=== PATIENT | male | born 1990 | race Caucasian/White ===

== ENCOUNTER 2020-04-09 16:14 | Emergency (ER) | payer OTHER, SELFPAY ==
[2020-04-09 16:24] VITALS: BP 148/84; PULSE 88; RESP 16; TEMP 36.9; O2SAT 98
--- NOTE | 2020-04-09 16:29 | ED.SKABFB ---
HPI - Skin/Abscess/Foreign Bdy General Chief complaint: Skin/Abscess/Foreign Body Stated complaint: rash Time Seen by Provider: 04/09/20 16:29 Source: patient and RN notes reviewed History of Present Illness HPI narrative: Patient is a 30-year-old male who presents the urgent care with complaints of itchy burning rash to bilateral upper arms, on the right side of the face and on the left lower back. Patient states that yesterday he was in a crawl space replacing old britt for approximately 5 to 6 hours. Patient states that he was not wearing any protective eyewear and was wearing shorts and a T-shirt. Patient states that there are no areas on his legs but his brother also has areas on his upper body. Denies of any shortness of breath, nausea, vomiting, fever. No other acute complaints. No acute distress noted. Patient read the plan of care. Related Data Allergies Allergy/AdvReac Type Severity Reaction Status Date / Time Seafood Allergy Mild facial Uncoded 07/30/19 09:53 swelling seafood Allergy Unknown Rash Uncoded 07/30/19 09:53 Review of Systems Review of Systems: Narrative: CONSTITUTIONAL: Denies fever, chills, or sweats. EYES: Denies visual changes, redness, or discharge. ENT: Denies rhinorrhea, congestion, sore throat, or otalgia. CARDIOVASCULAR: Denies chest pain, palpitations, or edema. RESPIRATORY: Denies cough or dyspnea. GASTROINTESTINAL: Denies abdominal pain, nausea, vomiting, or diarrhea. GENITOURINARY: Denies dysuria or hematuria. SKIN: Reports of burning itchy red rash to bilateral arms, lower left back, and right side of the face MUSCULOSKELETAL: Denies back pain, joint pain, or myalgia. NEUROLOGIC: Denies headache, numbness, or weakness. All other systems reviewed are negative, except as documented in HPI. [facility] Social History Social History (Updated 07/30/19 @ 10:04 by JUSTIN Chan) Smoking status: Never smoker Alcohol intake: never Substance use: never Gender identity (if verbalized by the patient): Male Comments At the time of my signature, I reviewed and agree with the nursing past medical, surgical, social, and family history. There is no relevant family history pertinent to the patient complaint. Exam Narrative: Exam Narrative: GENERAL: This is a well-nourished, well-developed patient, in no apparent distress. HEAD: normocephalic, atraumatic. EYES: PERRL. Sclera clear/white. Vision is grossly intact. EARS: External ears normal NOSE: External nose normal with no obvious nasal discharge, nares without redness, no rhinorrhea. THROAT: Mucous membranes moist, posterior pharynx clear. NECK: Neck supple RESPIRATORY: Clear to auscultation. Breath sounds equal bilaterally. No wheezes, rales, or rhonchi. SKIN: Erythemic excoriated first-degree ba bilateral arms, left lower back and right side of the face NEURO: awake, alert, and oriented to person, place and time. There were no obvious focal neurologic abnormalities. EXTREMITIES: No clubbing, cyanosis, or edema. Course Vital Signs Vital signs: Vital Signs Temperature 98.5 F 04/09/20 16:24 Pulse Rate 88 04/09/20 16:24 Respiratory Rate 16 04/09/20 16:24 Blood Pressure 148/84 H 04/09/20 16:24 Pulse Oximetry 98 04/09/20 16:24 Temperature 98.5 F 04/09/20 16:24 Pulse Rate 88 04/09/20 16:24 Respiratory Rate 16 04/09/20 16:24 Blood Pressure 148/84 H 04/09/20 16:24 Pulse Oximetry 98 04/09/20 16:24 Reviewed?patient is informed that they may have pre-hypertension or hypertension based on a blood pressure reading in the department. I recommend the patient call the primary care provider listed on their discharge instructions or a physician of their choice this week to arrange follow-up for further evaluation of possible pre-hypertension or hypertension. MDM - Skin/Abscess/Foreign Bdy MDM Narrative Medical decision making narrative: Advised patient to use prescription cream on the affected areas, twice a
== END 2020-04-09 17:02 | disposition home or self-care (01) ==
PROVIDERS: Emergency Provider Nurse Practitioner Family
DX: T22.10XA Burn of first degree of shoulder and upper limb, except wrist and hand, unspecified site, initial encounter (principal); T21.14XA Burn of first degree of lower back, initial encounter; T20.10XA Burn of first degree of head, face, and neck, unspecified site, initial encounter; T31.0 Burns involving less than 10% of body surface; R03.0 Elevated blood-pressure reading, without diagnosis of hypertension
CPT/HCPCS: 99213; G0463

== ENCOUNTER 2021-09-12 17:30 | Emergency (ER) | payer OTHER, SELFPAY ==
[2021-09-12 17:42] VITALS: BP 144/87; PULSE 82; RESP 16; TEMP 36.7; O2SAT 99
--- NOTE | 2021-09-12 18:15 | ED.EAR ---
HPI - Ear Problem General Chief complaint: Ear Stated complaint: Neck and Ear Pain Time Seen by Provider: 09/12/21 18:15 Source: patient, RN notes reviewed and old records reviewed Mode of arrival: ambulatory Limitations: no limitations History of Present Illness HPI Narrative: 31-year-old male presents to the [facility] with complaints of ear and neck pain on the right side for 2 days. Has poor dentition. Has been using Q-tips and pins to help remove earwax. MD Complaint: ear pain Location: right ear Duration: constant Severity: mild Relieving factors: nothing Related Data Allergies Allergy/AdvReac Type Severity Reaction Status Date / Time Seafood Allergy Mild facial Uncoded 07/30/19 09:53 swelling seafood Allergy Unknown Rash Uncoded 07/30/19 09:53 Review of Systems Review of Systems: All systems reviewed & are unremarkable except as noted in HPI and below Constitutional: Constitutional: Reports no additional constitutional complaints, Denies chills and Denies fever(s) Eyes: Eyes: Reports no additional eye complaints ENT: Reports as per HPI Comments: Right ear pain. Cardiovascular: Cardiovascular: Reports no additional cardiovascular complaints, Denies chest pain and Denies radiating jaw, neck or arm pain Respiratory: Respiratory: Reports no additional respiratory complaints, Denies cough, Denies dyspnea and Denies wheezing Gastrointestinal: Gastrointestinal: Reports no additional gastrointestinal complaints, Denies abdominal pain, Denies diarrhea, Denies nausea and Denies vomiting Musculoskeletal: Musculoskeletal: Reports no additional musculoskeletal complaints Integumentary/Breasts: Skin/Breast: Reports system reviewed and no additional complaints, except as docu Neurologic: Reports system reviewed and no additional complaints, except as documented Psychiatric: Psychiatric: Reports no additional psychiatric complaints Allergic/Immunologic: Allergic/Immunologic: Reports no additional allergic/immunologic complaints [facility] Past Medical History Medical History (Updated 09/14/21 @ 11:14 by Kylah Rangel) Patient denies medical problems Surgical History Surgical History (Updated 09/12/21 @ 18:21 by Kylah Rangel) H/O right wrist surgery Social History Social History Smoking status: Never smoker Alcohol intake: never Substance use: never Gender identity (if verbalized by the patient): Male Comments At the time of my signature, I reviewed and agree with the nursing past medical, surgical, social, and family history. There is no relevant family history pertinent to the patient complaint. Exam Const: General: healthy appearing, no acute distress and alert Nutritional Appearance: well nourished Orientation/consciousness: patient oriented x3 Limitations: no limitations HENMT: Head: normal to inspection Ears: external ears normal, Abnormal EAC present (Unable to visualize TM) excessive cerumen on the right, erythema on the right and edema on the right and unable to visualize TM on the right General nose exam: Normal external nose present and Normal nasal mucous membranes and turbinates present Face and sinus: sinuses nontender Teeth and gingiva: gingiva abnormal edematous and tender Teeth image: 1. Decayed, swelling around the gingiva Throat: posterior oropharynx normal, uvula midline and no uvular edema Eyes: Conjunctivae: conjunctivae normal Pupils: Equal, round and reactive pupils present Direct Ophthalmoscopy: no photophobia Neck: Neck: normal visual inspection, no lymphadenopathy and no meningeal signs Chest: Chest palpation & inspection: normal inspection of the chest Resp: Effort & Inspection: normal respiratory effort and no use of accessory muscles Auscultation: clear to auscultation bilaterally, no crackles, no rales, no rhonchi and no wheezes Cardio: Rate: regular rate Rhythm: regular rhythm Back/Spine/Pelvis:
== END 2021-09-12 18:38 | disposition home or self-care (01) ==
PROVIDERS: Emergency Provider Nurse Practitioner
DX: H60.91 Unspecified otitis externa, right ear (principal); H61.21 Impacted cerumen, right ear; K04.7 Periapical abscess without sinus
CPT/HCPCS: 99213; G0463

== ENCOUNTER 2022-02-13 16:46 | Emergency (ER) | payer OTHER, SELFPAY ==
--- NOTE | ~2022-02-13 | XR_ITS ---
XR ankle LT min 3V DATE: 02/13/2022 17:07 INDICATION: Injury today. Lateral swelling, posterior pain TECHNIQUE: 4 views COMPARISON: None FINDINGS: There is lateral moderate soft tissue swelling. No fracture or dislocation of the ankle or disruption of the ankle mortise is detected. No periosteal reaction or bone destruction. IMPRESSION: Lateral soft tissue swelling; no fracture or dislocation is detected Reviewed, dictated and finalized at location A. IMPRESSION: Lateral soft tissue swelling; no fracture or dislocation is detecte d
[2022-02-13 16:54] VITALS: BP 153/91; PULSE 101; RESP 18; TEMP 36.5; O2SAT 100
--- NOTE | 2022-02-13 17:34 | ED.LOWEXIN ---
HPI - Extremity Injury (Lower) General Chief Complaint: Extremity Injury, Lower Stated Complaint: left ankle injury Time Seen by Provider: 02/13/22 16:58 Source: RN notes reviewed History of Present Illness HPI Narrative: Patient presents emergency room from home for left ankle pain. Patient states approximately 11 AM this morning he missed a step and rolled his left ankle since that time has had pain and swelling over his left lateral ankle he denies any other trauma or injury states he is not taking medication for the pain states he has been walking on the ankle. Denies any numbness or tingling Related Data Allergies Allergy/AdvReac Type Severity Reaction Status Date / Time Seafood Allergy Mild facial Uncoded 07/30/19 09:53 swelling seafood Allergy Unknown Rash Uncoded 07/30/19 09:53 Review of Systems Review of Systems: Gen.: Denies fevers or chills Musculoskeletal: See HPI Neuro: Denies numbness, tingling, weakness Skin: Denies rash Endo: Denies DM PMFSH Past Medical History Medical History Patient denies medical problems Surgical History Surgical History (Updated 09/12/21 @ 18:21 by Kylah Rangel APRN) H/O right wrist surgery Social History Social History Smoking status: Never smoker Alcohol intake: never Substance use: never Gender identity (if verbalized by the patient): Male Exam Narrative: APPEARANCE: No acute distress, nontoxic, resting in bed Eyes: EOMI HEENT: Normocephalic, atraumatic, RESPIRATORY: No respiratory distress MUSCULOSKELETAl: Tender palpation of the left lateral ankle with swelling present no tenderness over the anterior medial ankle, no tenderness of the base of the fifth metatarsal or the proximal fibula, dorsalis pedis pulse 2+ neurovascular intact NEURO: Awake and alert. Following commands, speech normal, no focal deficits SKIN:: Warm, dry. Normal Color no rash or lesions Course Course Emergency Course: Discussed with patient results of workup and diagnosis. Discussed need for follow-up with primary care, proper use of medication, and reasons to return to the emergency department. Patient understands and agrees to current treatment plan Vital Signs Vital signs: Vital Signs Temperature 97.7 F 02/13/22 16:54 Pulse Rate 101 H 02/13/22 16:54 Respiratory Rate 18 02/13/22 16:54 Blood Pressure 153/91 H 02/13/22 16:54 Pulse Oximetry 100 02/13/22 16:54 Oxygen Delivery Room Air 02/13/22 16:54 Temperature 97.7 F 02/13/22 16:54 Pulse Rate 101 H 02/13/22 16:54 Respiratory Rate 18 02/13/22 16:54 Blood Pressure 153/91 H 02/13/22 16:54 Pulse Oximetry 100 02/13/22 16:54 Oxygen Delivery Room Air 02/13/22 16:54 MDM - Extremity Injury (Lower) Imaging Data Radiologist's impression: ITS Impressions Ankle X-Ray 02/13/22 17:17 IMPRESSION: Lateral soft tissue swelling; no fracture or dislocation is detected Discharge Plan Discharge Clinical Impression: Left ankle sprain Patient Disposition: Home, Self-Care Condition: Stable Instructions: Antibiotic Form, Ankle Sprain (ED) Additional Instructions: Return for creasing pain numbness or tingling in extremities or any other symptoms of concern Prescriptions: New ibuprofen [IBU] 600 mg tablet 600 mg PO Q6H PRN (Reason: pain) Qty: 20 0RF No Action silver sulfadiazine [Silvadene] 1 % cream 1 applic TOPICAL BID Qty: 50 0RF Rx Instructions: apply a 1.5 mm thickness cephalexin [Keflex] 500 mg capsule 500 mg PO Q12H Qty: 20 0RF amoxicillin 875 mg tablet 875 mg PO Q12H Qty: 20 0RF ciprofloxacin HCl 0.3 % drops See Rx Instructions .ROUTE .COMPLEX Qty: 10 0RF Rx Instructions: Place 4 drops in right ear 3 times a day for 5 days Follow-up/Referrals: PHYSICIAN NOT ON STAFF,NONSTAFF [Primary Care Provide
[2022-02-13] MEDS: IBUPROFEN 600 MG TABLET PO (17:46)
== END 2022-02-13 17:50 | disposition home or self-care (01) ==
PROVIDERS: Emergency Provider Emergency Medicine
DX: S93.402A Sprain of unspecified ligament of left ankle, initial encounter (principal); X50.0XXA Overexertion from strenuous movement or load, initial encounter
CPT/HCPCS: 73610; 99283; A9270

== ENCOUNTER 2022-07-27 14:46 | Emergency (ER) | payer OTHER, SELFPAY ==
--- NOTE | 2022-07-27 14:48 | ED.WOUNDLAC ---
HPI - Wound/Laceration General Chief Complaint: Wound/Laceration Stated Complaint: Right Hand Finger Laceration Time Seen by Provider: 07/27/22 14:48 Source: patient Mode of arrival: ambulatory Limitations: no limitations History of Present Illness HPI narrative: Mr. Collier is a 32-year-old male patient presenting to clinic today with complaints of a right index finger laceration. He reports he was taking down a metal shed and cut the top of his index finger. Tetanus status is unknown . Bleeding is controlled Related Data Home Medications Medication Instructions Recorded Confirmed lisinopril 10 tablet 07/27/22 07/27/22 mg-hydrochlorothiazide 12.5 mg tablet Allergies Allergy/AdvReac Type Severity Reaction Status Date / Time Seafood Allergy Mild facial Uncoded 07/27/22 14:59 swelling seafood Allergy Unknown Rash Uncoded 07/27/22 14:59 Review of Systems Review of Systems: Pertinent positives per HPI. Patient denies any fever, chills, rash, headache, visual changes, dizziness, cough, runny nose, sore throat, shortness of breath, chest pain, palpitations, nausea, vomiting, diarrhea, constipation, abdominal pain, or any urinary issues. [facility] Past Medical History Medical History Patient denies medical problems Surgical History Surgical History H/O right wrist surgery Social History Social History Smoking status: Never smoker Alcohol intake: never Substance use: never Gender identity (if verbalized by the patient): Male Comments At the time of my signature, I reviewed and agree with the nursing past medical, surgical, social, and family history. There is no relevant family history pertinent to the patient complaint. Exam Narrative: General: Well-developed, well nourished, in no apparent distress Head: Normocephalic, atraumatic. Cardio: Regular rate and rhythm, s1 and s2 normal, no murmur appreciated. Resp: Clear to auscultation bilaterally, no rhonchi, rales, wheezing or rubs. Integumentary: [place], warm, and dry, 1.5 cm laceration to the right dorsal index finger across the PIP joint. bleeding is controlled Course Course Emergency Course: Portions of this record may have been created with voice recognition software. Level of Care: Express Care Visit Vital Signs Vital signs: Vital Signs Temperature 36.4 C 07/27/22 15:01 Pulse Rate 100 07/27/22 15:01 Respiratory Rate 18 07/27/22 15:01 Blood Pressure 127/92 H 07/27/22 15:01 Pulse Oximetry 100 07/27/22 15:01 Oxygen Delivery Room Air 07/27/22 15:01 Temperature 36.4 C 07/27/22 15:30 Pulse Rate 100 07/27/22 15:30 Respiratory Rate 18 07/27/22 15:30 Blood Pressure 127/92 H 07/27/22 15:30 Pulse Oximetry 100 07/27/22 15:30 Oxygen Delivery Room Air 07/27/22 15:30 Vital signs reviewed Procedures Laceration Laceration 1: Date: 07/27/22 Site: hand ( right index Finger laceration) Side (If applicable): right Size (cm): 1.5 Description: linear Depth: simple, single layer Local Anesthetic: lidocaine 1% Amount of anesthesia used (mL): 2 Pre-repair: wound explored and irrigated ====== Skin Level ====== Skin layer closed with: nylon Size (cm): 4-0 Number of sutures: 3 Technique: simple, interrupted ====== Subcutaneous Layer ====== ====== Muscle Layer ====== ====== Tendon Layer ====== Dressing: Verbal consent obtained for laceration repair. Risk and benefits explained and patient voiced understanding. Area was cleansed with derm wash and a 25 gauge needle was then used to instill ( 2) ml of 1% lidocaine without epi into the wound edges. Area was prepped and draped using sterile technique. A 4-0 sutur
[2022-07-27 15:01] VITALS: BP 127/92; PULSE 100; RESP 18; TEMP 36.4; O2SAT 100
[2022-07-27] MEDS: TETANUS,DIPHTHERIA,AC PERTUSSIS ADULT (0.5 ML) BOOSTRIX IM (15:04)
[2022-07-27 15:30] VITALS: BP 127/92; PULSE 100; RESP 18; TEMP 36.4; O2SAT 100
== END 2022-07-27 15:28 | disposition home or self-care (01) ==
PROVIDERS: Emergency Provider Nurse Practitioner Family
DX: S61.210A Laceration without foreign body of right index finger without damage to nail, initial encounter (principal); W26.8XXA Contact with other sharp object(s), not elsewhere classified, initial encounter; Z23 Encounter for immunization; I10 Essential (primary) hypertension
CPT/HCPCS: 12001; 90471; 90715; 99212; G0463

== ENCOUNTER 2024-04-28 09:54 | Emergency (ER) | payer OTHER, SELFPAY ==
[2024-04-28 10:05] VITALS: BP 151/94; PULSE 74; RESP 16; TEMP 36.8; O2SAT 98
--- NOTE | 2024-04-28 10:19 | ED.ALCOHOL ---
HPI - Alcohol General Chief Complaint: Alcohol Stated Complaint: shakes,stomach hurts, getting off alcohol Time Seen by Provider: 04/28/24 10:00 Source: patient, RN notes reviewed and old records reviewed Mode of arrival: ambulatory Limitations: no limitations History of Present Illness HPI narrative: Patient presents with concerns about stopping alcohol usage. He reports that he awakened this morning with shakes and upper abdominal discomfort. Drank 2 shots of vodka at 9:00 a.m. this morning to stop the symptoms. He is symptom free at time of arrival today. Does not appear intoxicated. He reports that he has detoxed from alcohol in the past. The need for medical supervision during alcohol detoxification was discussed, patient verbalized understanding of same. He voices no physical complaints at this time. He does admit to hypertension, unsure if he took his medication this morning. Chronic alcohol use: Yes Associated symptoms: nausea, vomiting and abdominal pain Treatments prior to arrival: other (alcohol) Related Data Home Medications Medication Instructions Recorded Confirmed lisinopril 10 1 tablet PO DAILY 07/27/22 07/27/22 mg-hydrochlorothiazide 12.5 mg tablet buprenorphine 12 mg-naloxone 3 mg 1 film buccal DAILY 04/28/24 04/28/24 sublingual film sennosides 8.6 mg tablet (senna) 8.6 mg PO DAILY 04/28/24 04/28/24 Allergies Allergy/AdvReac Type Severity Reaction Status Date / Time Seafood Allergy Mild facial Uncoded 04/28/24 09:59 swelling seafood Allergy Unknown Rash Uncoded 04/28/24 09:59 Review of Systems Review of Systems: All systems reviewed & are unremarkable except as noted in HPI and below Constitutional: Constitutional: Reports as per HPI and Reports no additional constitutional complaints ENT: Reports system reviewed and no additional complaints, except as documented Cardiovascular: Cardiovascular: Reports as per HPI and Reports no additional cardiovascular complaints Respiratory: Respiratory: Reports as per HPI and Reports no additional respiratory complaints Gastrointestinal: Gastrointestinal: Reports as per HPI, Reports no additional gastrointestinal complaints and Reports nausea (One episode of vomiting this morning, stopped with alcohol usage) Neurologic: Reports system reviewed and no additional complaints, except as documented, Reports as per HPI and Reports tremor(s) (Stopped with alcohol use) Psychiatric: Psychiatric: Reports as per HPI PMF Past Medical History Medical History Patient denies medical problems Surgical History Surgical History H/O right wrist surgery Social History Social History Smoking status: Never smoker Alcohol intake: never Substance use: never Living arrangements: with family Occupation/Education: occupation Gender identity (if verbalized by the patient): Male Exam Const: General: cooperative, no acute distress, alert and awake Orientation/consciousness: oriented to person, oriented to place and oriented to time HENMT: Head: normal to inspection Resp: Effort & Inspection: normal respiratory effort and able to speak in complete sentences Auscultation: clear to auscultation bilaterally, no crackles, no rales, no rhonchi and no wheezes Cardio: Palpation: normal PMI Rate: regular rate Rhythm: regular rhythm Heart sounds: S1 normal heart sound present and S2 normal heart sound present GI: GI Palp: No abdominal tenderness, Yes Soft to palpation, No Guarding due to palpation present (GI) and No Rigid due to palpation Neuro: General: oriented to person, oriented to place and oriented to time Cranial nerves: Yes CN's II-XII intact bilaterally Psych: Appearance: grossly normal Thought process: Normal thought process present Insight: Good insight present (P
== END 2024-04-28 10:30 | disposition home or self-care (01) ==
PROVIDERS: Emergency Provider Nurse Practitioner Family
DX: F10.20 Alcohol dependence, uncomplicated (principal); I10 Essential (primary) hypertension
CPT/HCPCS: 99213; G0463

== ENCOUNTER 2024-04-29 05:54 | Emergency (ER) | payer OTHER, SELFPAY ==
[2024-04-29 06:00] VITALS: PULSE 74; RESP 20; TEMP 36.7; O2SAT 100
--- NOTE | 2024-04-29 06:17 | ECG_ITS ---
Test Date: 2024-04-29 07:08:58 Measurements Intervals Strong Rate: 70 P: 30 RI: 158 QRS: 31 QRSD: 102 T: 37 QT: 381 QTc: 413 Interpretive Statements SINUS RHYTHM No previous ECG available for comparison Electronically Signed On 04-29-2024 10:23:55 CDT by Leandro Doss M.D.
--- NOTE | 2024-04-29 06:18 | ED.GENADULT ---
HPI - General Adult General Chief complaint: Unspecified Stated complaint: etoh withdrawl Time Seen by Provider: 04/29/24 06:52 Source: patient Mode of arrival: ambulatory Limitations: no limitations History of Present Illness HPI narrative: Patient presents concerned that he is withdrawing from alcohol. He has been drinking 7-8 shots per day as well as beer with his last drink at 8:00 p.m.. He vomited his water coffee prior to arrival and notes that for the last several mornings he has been vomiting and feeling shaky. As he tries to sleep he notes that he has anxiety and states the only he withdraws however he denies ever previously withdrawing from alcohol. He does have a history of withdrawing from heroin. He states he has been drinking for the past 5 years often. He states he wants to quit. Lives with his who is not sick. He notes that he is tired and has been having difficulty sleeping as he feels anxious when tries to. He feels parched. Patient denies any current nausea or vomiting. He denies any tactile, auditory, or visual disturbances. Denies a headache. Related Data Home Medications Medication Instructions Recorded Confirmed lisinopril 10 1 tablet PO DAILY 07/27/22 07/27/22 mg-hydrochlorothiazide 12.5 mg tablet buprenorphine 12 mg-naloxone 3 mg 1 film buccal DAILY 04/28/24 04/28/24 sublingual film sennosides 8.6 mg tablet (senna) 8.6 mg PO DAILY 04/28/24 04/28/24 Allergies Allergy/AdvReac Type Severity Reaction Status Date / Time Seafood Allergy Mild facial Uncoded 04/29/24 07:06 swelling seafood Allergy Unknown Rash Uncoded 04/29/24 07:06 [facility] Past Medical History Medical History Hypertension Surgical History Surgical History H/O right wrist surgery Social History Social History (Updated 04/29/24 @ 07:[address] MD) Smoking status: Never smoker Alcohol intake: current Alcohol use details: 7-8 shots/day + beer Substance use: former Substance use type: heroin Living arrangements: with family Additional living arrangements comments: Occupation/Education: unemployed Additional occupation/education comments: currently between jobs Gender identity (if verbalized by the patient): Male Exam Narrative: GENERAL: Well-appearing, well-nourished, and in no acute distress. HEAD: Normocephalic, atraumatic. EYES: Non injected, non icteric ENT: Nares clear, no rhinorrhea or epistaxis. NECK: Supple. CHEST: Speaking in full sentences. No respiratory distress. HEART: Regular rate and rhythm. . ABDOMEN: Soft, nondistended. EXTREMITIES: Normal range of motion. No lower extremity edema. SKIN: Warm, dry, no rash. Moist palm. NEURO: No focal deficits. Alert and oriented x3. No visible tremor which can be felt finger tip to fingertips. Patient can do serial additions he is able to state the date. PSYCH: Normal mood and affect. Patient endorses anxiety does not appear agitated/restless. Denies tactile or auditory disturbances or visual disturbances. Course Vital Signs Vital signs: Vital Signs Temperature 98.0 F 04/29/24 06:00 Pulse Rate 74 04/29/24 06:00 Respiratory Rate 20 04/29/24 06:00 Pulse Oximetry 100 04/29/24 06:00 Temperature 97.9 F 04/29/24 08:45 Pulse Rate 70 04/29/24 08:45 Respiratory Rate 16 04/29/24 08:45 Blood Pressure 135/80 04/29/24 08:45 Pulse Oximetry 99 04/29/24 08:45 Medical Decision Making MDM Narrative Medical decision making narrative: Patient presents with concern for alcohol withdrawal. He has been drinking intermittently over the past 5 years, recently 78 shots per day as well as beer. He does for the last several mornings he has felt shaky and been vomiting. No sick contacts. No prior withdrawal from alcohol though he does have a previous history of
--- NOTE | 2024-04-29 06:54 | ED.GENADULT ---
HPI - General Adult General Chief complaint: Unspecified Stated complaint: etoh withdrawl Time Seen by Provider: 04/29/24 06:52 History of Present Illness HPI narrative: DISREGARD. DUPLICATE NOTE ACCIDENTALLY STARTED. PLEASE SEE OTHER NOTE ON SAME DATE. Related Data Home Medications Medication Instructions Recorded Confirmed lisinopril 10 1 tablet PO DAILY 07/27/22 07/27/22 mg-hydrochlorothiazide 12.5 mg tablet buprenorphine 12 mg-naloxone 3 mg 1 film buccal DAILY 04/28/24 04/28/24 sublingual film sennosides 8.6 mg tablet (senna) 8.6 mg PO DAILY 04/28/24 04/28/24 Allergies Allergy/AdvReac Type Severity Reaction Status Date / Time Seafood Allergy Mild facial Uncoded 04/29/24 07:06 swelling seafood Allergy Unknown Rash Uncoded 04/29/24 07:06 PMFSH Past Medical History Medical History Hypertension Surgical History Surgical History H/O right wrist surgery Social History Social History (Updated 04/29/24 @ 07:[address] MD) Smoking status: Never smoker Alcohol intake: current Alcohol use details: 7-8 shots/day + beer Substance use: former Substance use type: heroin Living arrangements: with family Additional living arrangements comments: Occupation/Education: unemployed Additional occupation/education comments: currently between jobs Gender identity (if verbalized by the patient): Male Exam Narrative: GENERAL: Well-appearing, well-nourished, and in no acute distress. HEAD: Normocephalic, atraumatic. EYES: Non injected, non icteric ENT: Nares clear, no rhinorrhea or epistaxis. NECK: Supple. CHEST: Speaking in full sentences. No respiratory distress. HEART: Regular rate and rhythm. . ABDOMEN: Soft, nondistended. EXTREMITIES: Normal range of motion. No lower extremity edema. SKIN: Warm, dry, no rash. NEURO: No focal deficits. Alert and oriented x3. PSYCH: Normal mood and affect. Course Vital Signs Vital signs: Vital Signs Temperature 98.0 F 04/29/24 06:00 Pulse Rate 74 04/29/24 06:00 Respiratory Rate 20 04/29/24 06:00 Pulse Oximetry 100 04/29/24 06:00 Temperature 97.9 F 04/29/24 08:45 Pulse Rate 70 04/29/24 08:45 Respiratory Rate 16 04/29/24 08:45 Blood Pressure 135/80 04/29/24 08:45 Pulse Oximetry 99 04/29/24 08:45 Medical Decision Making Vital Signs Vital Signs: Vital Signs Temperature 98.0 F 04/29/24 06:00 Pulse Rate 74 04/29/24 06:00 Respiratory Rate 20 04/29/24 06:00 Pulse Oximetry 100 04/29/24 06:00 Temperature 97.9 F 04/29/24 08:45 Pulse Rate 70 04/29/24 08:45 Respiratory Rate 16 04/29/24 08:45 Blood Pressure 135/80 04/29/24 08:45 Pulse Oximetry 99 04/29/24 08:45 Lab Data 04/29/24 06:48 04/29/24 06:48 Labs: Lab Results 04/29/24 04/29/24 04/29/24 Range/Units 06:46 06:48 07:30 WBC 5.5 (4.5-10.0) K/mm3 RBC 5.22 (4.6-6.20) M/mm3 Hgb 16.6 (14.0-18.0) g/dL Hct 48.0 (42.0-52.0) % MCV 92.0 (80-100) fl MCH 31.8 (26-34) pg MCHC 34.6 (32-36) g/dl RDW 11.9 (11.5-14.5) % Plt Count 215 (150-375) k/mm3 MPV 8.8 (7.4-10.4) fl Immature Gran % (Auto) 0.4 (0-0.5) % Neut % (Auto) 61.1 (45.5-73.1) % Lymph % (Auto) 24.4 (18.3-44.2) % Forrest % (Auto) 9.5 H (2.6-8.5) % Eos % (Auto) 3.5 (0-4.4) % Baso % (Auto) 1.1 (0.2-1.2) % Lymph # (Auto) 1.33 (0.9-3.2) K/mm3 Forrest # (Auto) 0.5 (0.1-0.6) K/mm3 Eos # (Auto) 0.2 (0-0.3) K/mm3 Baso # (Auto) 0.1 (0.0-0.1) K/mm3 Abs Immat Gran (auto) 0.02 (0.00-0.031) K/mm3 Absolute Neuts (auto) 3.3 (1.3-6.7) K/mm3 Absolute Nucleated RBC 0.000 (0.0-0.012) K/mm3 Nucleated RBC % 0.0 (0.0-0.2) % PT 13.9 (11.1-14.7) Seconds INR 1.0 APTT 28.1 (22.3-36.8
[2024-04-29 06:58] LABS: Basophils Absolute Auto 0.1 K/mm3 (0.0-0.1); Basophils Percent Auto 1.1 % (0.2-1.2); Eosinophils Absolute Auto 0.2 K/mm3 (0-0.3); Eosinophils Percent Auto 3.5 % (0-4.4); Hemoglobin 16.6 g/dL (14.0-18.0); Immature Granulocyte Absolute 0.02 K/mm3 (0.00-0.031); Immature Granulocyte Percent A 0.4 % (0-0.5); Lymphocytes Absolute Auto 1.33 K/mm3 (0.9-3.2); Lymphocytes Percent Auto 24.4 % (18.3-44.2); Mean Corpuscular HGB Conc 34.6 g/dl (32-36); Mean Corpuscular Hemoglobin 31.8 pg (26-34); Mean Platelet Volume 8.8 fl (7.4-10.4); Monocytes Absolute Auto 0.5 K/mm3 (0.1-0.6); Monocytes Percent Auto 9.5 % (2.6-8.5); Neutrophils Absolute Auto 3.3 K/mm3 (1.3-6.7); Neutrophils Percent Auto 61.1 % (45.5-73.1); Platelet Count Result 215 k/mm3 (150-375); Red Blood Count 5.22 M/mm3 (4.6-6.20); Red Cell Distribution Width 11.9 % (11.5-14.5); White Blood Count 5.5 K/mm3 (4.5-10.0)
[2024-04-29 07:05] LABS: Add Urine Microscopic? NO; Appearance Urine Clear (Clear); Bilirubin Urine Negative (Negative); Blood Urine Negative (Negative); Color Urine Yellow (Yellow); Glucose Urine UA Negative (Negative); Ketones Urine Negative (Negative); Leukocyte Esterase Ur Negative LEU/UL (Negative); Nitrate Urine Negative (Negative); Protein Urine Negative (Negative); Specific Grav Ur 1.015 (1.001-1.035); Urobilinogen Urine 0.2 mg/dL (<2.0); pH Urine 6.5 (5.0-9.0)
[2024-04-29 07:07] VITALS: BP 149/98; PULSE 71; PULSE 77; RESP 16; O2SAT 98
[2024-04-29 07:11] LABS: Ethanol < 10 mg/dL (<10); Lipase 48 U/L (23-300); Phosphorus 2.6 mg/dL (2.5-4.5)
[2024-04-29 07:12] LABS: Alanine Aminotransferase 269 U/L (6-50); Albumin Level 4.9 g/dL (3.5-5.1); Alkaline Phosphatase 78 U/L (38-126); Anion Gap 9 mmol/L (4-12); Aspartate Amino Transferase 124 U/L (17-59); Blood Urea Nitrogen 12 mg/dL (9-20); Calcium 9.6 mg/dL (8.4-10.2); Carbon Dioxide 30 mmol/L (22-30); Chloride 96 mmol/L (98-107); Estimated CRCL calculation 116 ml/min; Estimated Glomerular Filt Rate > 60; Glucose 99 mg/dL (65-110); Potassium 3.8 mmol/L (3.4-5.0); Sodium 135 mmol/L (137-145)
[2024-04-29 07:23] LABS: Partial Thromboplastin Time 28.1 Seconds (22.3-36.8); Prothrombin Time 13.9 Seconds (11.1-14.7)
[2024-04-29 07:49] VITALS: BP 148/92; PULSE 74; RESP 12; O2SAT 97
[2024-04-29] MEDS: SODIUM CHLORIDE 0.9% IV 1,000 ML 999 ML IV CONT (07:49)
[2024-04-29 08:00] LABS: Amphetamine Screen Urine Negative (Negative); Barbiturate Screen Urine Negative (Negative); Benzodiazepines Screen Urine Negative (Negative); Cannabinoid Screen Urine Negative (Negative); Cocaine Screen Urine Negative (Negative); Methadone Screen Urine Negative (Negative); Opiate Screen Urine Negative (Negative); Phencyclidine Screen Urine Negative (Negative)
[2024-04-29 08:13] LABS: Influenza A QL RT-PCR Negative (Negative); Influenza B QL RT-PCR Negative (Negative); SARS-CoV-2 RNA PCR Negative (Negative)
[2024-04-29 08:17] VITALS: BP 141/82; PULSE 68; RESP 12; O2SAT 100
[2024-04-29] MEDS: chlordiazePOXIDE (*CRX) 25 MG CAPSULE PO (08:29)
[2024-04-29] MEDS: THIAMINE HCL 200 MG/2 ML VIAL 100 MG IV PUSH (08:30)
[2024-04-29] MEDS: FOLIC ACID 1 MG/0.2 ML INJ IV PUSH (08:44)
[2024-04-29 08:45] VITALS: BP 135/80; PULSE 70; RESP 16; TEMP 36.6; O2SAT 99
== END 2024-04-29 08:58 | disposition home or self-care (01) ==
PROVIDERS: Emergency Medicine; Emergency Provider Student in an Organized Health Care Education/Training Program
DX: F10.90 Alcohol use, unspecified, uncomplicated (principal); Y90.0 Blood alcohol level of less than 20 mg/100 ml; R74.01 Elevation of levels of liver transaminase levels; Z20.822 Contact with and (suspected) exposure to COVID-19; I10 Essential (primary) hypertension
CPT/HCPCS: 36415; 80053; 80307; 81003; 83690; 83735; 84100; 84443; 85025; 85610; 85730; 87636; 93005; 96361; 96374; 96375; 99284; A9270; J3411; J7030

== ENCOUNTER 2024-10-14 13:48 | Emergency (ER) | payer OTHER, SELFPAY ==
--- NOTE | 2024-10-14 13:53 | ED.URI ---
HPI - URI/Sore Throat General Chief Complaint: Upper Respiratory Infection Stated Complaint: SCRUGGS,weak,sore throat Time Seen by Provider: 10/14/24 14:38 Source: patient and RN notes reviewed Mode of arrival: ambulatory Limitations: no limitations History of Present Illness HPI Narrative: 34-year-old male presents with concern for 2 day history of headache, general malaise, sore throat, cough. He reports he has taken ibuprofen and Mucinex. MD elicited complaint: fever and cough Related Data Home Medications ?Medication ?Instructions ?Recorded ?Confirmed ?Last Taken ?Type lisinopril 10 1 tablet PO DAILY 07/27/22 10/14/24 Unknown History mg-hydrochlorothiazide 12.5 mg tablet buprenorphine 128 mg/0.36 mL 128 mg subcut Q28D 10/14/24 10/14/24 Unknown History solution,ext.rel.subcutaneous syringe (Brixadi Monthly) Allergies Allergy/AdvReac Type Severity Reaction Status Date / Time Seafood Allergy Mild facial Uncoded 10/14/24 13:53 swelling seafood Allergy Unknown Rash Uncoded 10/14/24 13:53 Review of Systems Review of Systems: CONSTITUTIONAL: Reports malaise, fever. EYES: Denies visual changes, redness, or discharge. ENT: Reports rhinorrhea. The congestion, sinus pain, otalgia and sore throat. CARDIOVASCULAR: Denies chest pain, palpitations, or edema. RESPIRATORY: Reports cough. Denies dyspnea. GASTROINTESTINAL: Denies abdominal pain, nausea, vomiting, diarrhea SKIN: Denies rash or itching. MUSCULOSKELETAL: Reports myalgia. NEUROLOGIC: Reports headache. All systems reviewed & are unremarkable except as noted in HPI and below PMFSH Past Medical History Medical History Hypertension Surgical History Surgical History H/O right wrist surgery Social History Social History (Updated 04/29/24 @ 07:[address] MD) Smoking status: Never smoker Alcohol intake: current Alcohol use details: 7-8 shots/day + beer Substance use: former Substance use type: heroin Living arrangements: with family Additional living arrangements comments: Occupation/Education: unemployed Additional occupation/education comments: currently between jobs Gender identity (if verbalized by the patient): Male Comments At time of signature, agree with nursing past medical, surgical, social and family history. There is no relevant family history pertinent to the presenting complaint Exam Narrative: GENERAL: Nontoxic-appearing, well-nourished, and in no acute distress. HEAD: Normocephalic EYES: PERRLA, conjunctivae clear ENT: Nares clear. Mucous membranes moist. TM pearly carson with dull light reflex bilaterally; no tragal tenderness. Oropharynx not erythematous without lesions. Tonsils not enlarged and without exudate, no drooling, no hoarseness, no trismus, uvula midline. NECK: Supple. No lymphadenopathy CHEST: Clear to auscultation, breath sounds equal. No wheezing, rhonchi, rales, or stridor. No respiratory distress, speaks in full sentences. HEART: Regular rate and rhythm. No murmur heard. SKIN: Warm, dry, no rash. NEURO: Alert and oriented x3. PSYCH: Normal mood and affect Course Course Emergency Course: Patient is aware of diagnosis, understands and agrees to treatment plan. Anticipatory guidance given. Patient agrees to follow-up as directed and is aware of reasons to seek care at the emergency department. Portions of this record may have been created with voice recognition software Level of Care: Express Care Visit Vital Signs Vital signs: Reviewed. MDM - URI/Sore Throat MDM Narrative Medical decision making narrative: Differential diagnosis considered: Neves virus, strep pharyngitis, allergic rhinitis, upper respiratory tract infection, sinusitis, rhinosinusitis, nasopharyngitis. viral pharyngitis, otitis media, otitis externa, pneumonia, bronchitis, viral cough syndrome, viral syndrome, and influenza. Exam findings show no acute concerns or changes; patient is non-toxic appearing and is in no distress. Patient is appropriate for outpatient treatment and follow-up. Lab Data Attestation: I reviewed the patient's lab results. Critical Care Time Critical Care Time Critical Care Time: No Discharge Plan Discharge Clinical Impression: Influenza A Patient Disposition: Home, Self-Care Condition: Stable Instructions: Influenza (ED) Additional Instructions: -Take strict precautions to prevent the spread of your virus. Be diligent about covering your cough (even when you are alone) and washing your hands frequently. -You may contagious until you have been symptom and/or fever free for 24 hours without fever reducing medicine -Alternate Ibuprofen and Tylenol for pain and fever relief (per package directions) -Some Cough medicines may make you drowsy, do not take it if you have to make important decisions, drive, or work. -Drink plenty of fluid - drink fluid with electrolytes such as Gatorade or other oral re-hydration solution. Avoid caffeine, which can make dehydration worse. -Get plenty of rest to help your body heal. -Use a cool mist humidifier for chest and nasal congestion. -Eat RAW honey or use cough drops to ease throat discomfort -Do not smoke or expose children to secondhand smoke -Wash your hands frequently. -Please follow-up with your primary care doctor in the next 1-2 days if your symptoms do not improve. -If you have any worsening of symptoms or any other concerns please go to the ED immediately. -Please take medications as prescribed and continue taking your home medications as usual. Patient Language: Chinese Prescriptions: New promethazine-DM 6.25-15 mg/5 mL syrup 5 ml PO Q4-6H PRN (Reason: cough) Qty: 120 0RF No Action lisinopril-hydrochlorothiazide 10-12.5 mg tablet 1 tablet PO DAILY Brixadi 128 mg/0.36 mL solution, extended rel syringe 128 mg SUBCUT Q28D Follow-up/Referrals: UNKNOWN,DOCTOR [Primary Care Provider] - Time of Disposition: 14:48
[2024-10-14 14:09] VITALS: BP 123/105; PULSE 107; RESP 16; TEMP 38.7; O2SAT 98
[2024-10-14 14:47] LABS: EDINFLUASCREEN Positive (Negative); EDINFLUBSCREEN Negative (Negative)
[2024-10-14 14:48] LABS: EDCOVIDSCREEN Negative (Negative)
== END 2024-10-14 14:51 | disposition home or self-care (01) ==
PROVIDERS: Emergency Provider Nurse Practitioner
DX: J10.1 Influenza due to other identified influenza virus with other respiratory manifestations (principal); I10 Essential (primary) hypertension; Z20.822 Contact with and (suspected) exposure to COVID-19
CPT/HCPCS: 87426; 87804; 99213; G0463

== ENCOUNTER 2025-07-24 08:08 | Emergency (ER) | payer OTHER, SELFPAY ==
--- NOTE | 2025-07-24 08:12 | ED_ITS ---
HPI - URI/Sore Throat General Stated Complaint: sore throat Time Seen by Provider: 07/24/25 08:09 Source: patient Mode of arrival: ambulatory Limitations: no limitations History of Present Illness HPI Narrative: Cholo is a 35 year old female patient presenting to the clinic today with c/o sore throat, runny nose, headache, and slight cough x 2 days. He reports he has been exposed strep from his nephew. He denies any fevers but states he has had some chills. No body aches. Rates pain 5/10 currently. Has taken TheraFlu for his symptoms. Reports his nasal drainage is green. Denies any shortness of breath or chest pain. No nausea, vomiting, or diarrhea. Related Data Home Medications ?Medication ?Instructions ?Recorded ?Confirmed ?Last Taken ?Type lisinopril 10 1 tablet PO DAILY 07/27/22 0 10/14/24 Unknown History mg-hydrochlorothiazide 12.5 mg tablet buprenorphine 128 mg/0.36 mL 128 mg subcut Q28D 10/14/24 Unknown History solution,ext.rel.subcutaneous syringe (Brixadi Monthly) Allergies Allergy/AdvReac Type Severity Reaction Status Date / Time Seafood Allergy Mild facial Uncoded 10/14/24 13:53 swelling seafood Allergy Unknown Rash Uncoded 10/14/24 13:53 Review of Systems Review of Systems: Pertinent positives per HPI. Patient denies any fever, rash, visual changes, dizziness, shortness of breath, chest pain, palpitations, nausea, vomiting, diarrhea, constipation, abdominal pain, or any urinary issues. [facility] Past Medical History Medical History Hypertension Surgical History Surgical History H/O right wrist surgery Social History Social History Smoking status: Never smoker Alcohol intake: current Alcohol use details: 7-8 shots/day + beer Substance use: former Substance use type: heroin Living arrangements: with family Additional living arrangements comments: Occupation/Education: unemployed Additional occupation/education comments: currently between jobs Gender identity (if verbalized by the patient): Male Comments At the time of my signature, I reviewed and agree with the nursing past medical, surgical, social, and family history. There is no relevant family history pertinent to the patient complaint. Exam Narrative: General: Well-developed, well nourished, in no apparent distress Head: Normocephalic, atraumatic Eyes: Pupils equally round and reactive to light bilaterally, EOM intact, sclera and conjunctive clear, no discharge, lids normal Ears: TMs intact and clear, ear canals clear, no drainage, grossly hearing normal. Nose: Nares patent, clear nasal discharge, mild inflammation, no sinus tenderness. Mouth: Oropharynx red without lesions or masses, good dentition, MMM. Neck: Supple, trachea midline, no enlargement of anterior or posterior cervical nodes, no thyroid masses or goiter palpable. Cardio: Regular rate and rhythm, s1 and s2 normal, no murmur appreciated. Resp: Clear to auscultation bilaterally anteriorly and posteriorly, no rhonchi, rales, wheezing or rubs Course Course Emergency Course: Portions of this record may have been created with voice recognition software. Level of Care: Express Care Visit Vital Signs Vital signs: Vital Signs Temperature 36.8 C 07/24/25 08:20 Pulse Rate 107 H 07/24/25 08:20 Respiratory Rate 18 07/24/25 08:20 Blood Pressure 152/83 H 07/24/25 08:20 Pulse Oximetry 99 07/24/25 08:20 Oxygen Delivery Room Air 07/24/25 08:20 Temperature 36.8 C 07/24/25 08:20 Pulse Rate 107 H 07/24/25 08:20 Respiratory Rate 18 07/24/25 08:20 Blood Pressure 152/83 H 07/24/25 08:20 Pulse Oximetry 99 07/24/25 08:20 Oxygen Delivery Room Air 07/24/25 08:20 Vital signs reviewed MDM - URI/Sore Throat MDM Narrative Medical decision making narrative: At the time of visit patient is resting comfortably on the exam table. Patient appears to be nontoxic. c/o sore throat, runny nose, headache, and slight cough x 2 days. He reports he has been exposed strep from his nephew. He denies any fevers but states he has had some chills. No body aches. Rates pain 5/10 currently. Has taken TheraFlu for his symptoms. Reports his nasal drainage is green. Denies any shortness of breath or chest pain. No nausea, vomiting, or diarrhea. On exam patient has bilateral TMs intact and clear, clear nasal drainage, mild anterior turbinates inflammation, oral pharynx red, lung sounds are clear, heart rates regular rate and rhythm. COVID, influenza, and strep test were ordered. Labs: Strep, COVID, and influenza testing was negative in the clinic today. We will send strep for culture Plan: I suspect patient has URI/pharyngitis. Work note was given. Recommend [id number] medications such as Coricidin HBP for cold/flu symptoms. Supportive measures were discussed with the patient and they voiced understanding discharge instructions and agrees to treatment plan. Return precautions reviewed Differential Diagnosis Differential diagnosis: Likely upper respiratory infection, otitis media, sinusitis, viral infection, bronchitis, influenza, pharyngitis and other (COVID) Lab Data Labs: Lab Results 07/24/25 07/24/25 Range/Units 08:15 08:25 POC Influenza A Ag Negative (Negative) POC Influenza B Ag Negative (Negative) POC SARS CoV-2 Ag Negative (Negative) POC Grp A Strep Screen Negative (Negative) Discharge Plan Discharge Clinical Impression: URI (upper respiratory infection) Qualifiers: URI type: unspecified URI Qualified Code(s): J06.9 - Acute upper respiratory infection, unspecified Pharyngitis Qualifiers: Pharyngitis/tonsillitis etiology: unspecified etiology Qualified Code(s): J02.9 - Acute pharyngitis, unspecified Patient Disposition: Home Condition: Stable Instructions: Antibiotic Form, Pharyngitis (ED), Cold Symptoms (ED) Additional Instructions: Strep, COVID, and influenza testing were all negative in the clinic today. We will send strep for culture if this comes back positive we will contact him place you on antibiotics at that time. May take Coricidin HBP for cold/flu symptoms Increase fluids and stay well hydrated May take Tylenol or motrin as directed on bottle for pain/fever May use Flonase 1 spray in each nare daily May take OTC antihistamines such as Zyrtec or Claritin daily as directed on bottle May apply Vicks vapor rub to chest to open sinuses Sinus rinses for congestion Cepacol spray, cough drops, throat lozenges, warm tea with honey/lemon, gargle salt water to soothe throat BRAT diet for diarrhea Clear liquids x 24 hours then advance as tolerated for nausea/vomiting Go to the ED if you develop a worsening in your condition- high fever not controlled by Tylenol or Motrin, dehydration, weakness, lethargy, shortness of breath, or chest pain. Follow up with your PCP in 3-5 days if symptoms persist. Patient Language: South Korean Prescriptions: No Action lisinopril-hydrochlorothiazide 10-12.5 mg tablet 1 tablet PO DAILY Brixadi 128 mg/0.36 mL solution, extended rel syringe 128 mg SUBCUT Q28D promethazine-DM 6.25-15 mg/5 mL syrup 5 ml PO Q4-6H PRN (Reason: cough) Qty: 120 0RF Follow-up/Referrals: PHYSICIAN,MARKET RISK ANALYST [Primary Care Provider, Internal Medicine] Stand Alone Forms: Work/School Release IP Time of Disposition: 08:31 Quality NIHSS Nursing Documentation ED NIHSS nursing documentation: reviewed/agree
[2025-07-24 08:20] VITALS: BP 152/83; PULSE 107; RESP 18; TEMP 36.8; O2SAT 99
[2025-07-24 08:32] LABS: EDSTREPNEGPOS1 Negative (Negative)
[2025-07-24 08:45] LABS: EDCOVIDSCREEN Negative (Negative); EDINFLUASCREEN Negative (Negative); EDINFLUBSCREEN Negative (Negative)
== END 2025-07-24 08:44 | disposition home or self-care (01) ==
PROVIDERS: Emergency Provider Nurse Practitioner Family
DX: J06.9 Acute upper respiratory infection, unspecified (principal); J02.9 Acute pharyngitis, unspecified; Z20.822 Contact with and (suspected) exposure to COVID-19; I10 Essential (primary) hypertension
CPT/HCPCS: 87081; 87426; 87804; 87880; 99213; G0463